=== PATIENT | male | born 1965 | race Hispanic/Latino ===

== ENCOUNTER → 2024-04-06 | Day surgery (SDC) | payer MEDICARE, OTHER ==
[~2024-04-06] MED LIST: AMITRIPTYLINE H10 MG PO; ASPIRIN81 MG; BUPIVACAINE 0.25% 30ML SDV ONE; CIPRO500 MG PO; DEXAMETHASONE SOD PHOS INJ 4 MG/ML SDV ONE; DILTIAZEM ER180 M1 PO; DOXYCYCLINE HY100 MG PO; FAMOTIDINE 20 MG/2 ML VIAL IV ONE; FENTANYL CITRATE/PF 100MCG/2 ML INJ ONE; FISH OIL; LANSOPRAZOLE30 M1; LIDOCAINE HCL 1% LOCAL INJ 20 ML VIAL ONE; LIDOCAINE HCL 2% LOCAL INJ 5 ML SDV VIAL INJ ONE; LIDOCAINE100 MG/53; LISINOPRIL10 MG PO; MAGNESIUM; MELOXICAM7.5 MG PO; MIDAZOLAM HCL 2 MG/2 ML VIAL ONE; MULTI-VITAMIN1 EACH; Morphine 10mg syringe 10 MG/ML INJ ONE; OMEPRAZOLE40 MG PO; PREVACID30 M1 PO; PROPOFOL IV EMULSION 10 MG/ML 20 ML VIAL ONE; TADALAFIL5 MG PO; TIZANIDINE HCL4 M1 PO; VITAMIN C1000 MG PO; [UNRECOGNIZED DRUG - OTHER]
[2024-04-06 06:22] LABS: BASOPHILS % 0.4 % (0.0-1.0); EOSINOPHILS # (AUTO) 0.3 (0.0-0.4); EOSINOPHILS % 7.1 % (0.0-6.0); HEMATOCRIT 40.8 % (38.2-49.6); HEMOGLOBIN 13.2 g/dL (14.0-18.0); LYMPHOCYTES # (AUTO) 1.3 (1.0-3.2); LYMPHOCYTES % 27.6 % (18.0-39.1); MEAN CORPUSCULAR HEMOGLOBIN 30.9 pg (28-32); MEAN CORPUSCULAR HGB CONC 32.4 g/dL (31-35); MEAN CORPUSCULAR VOLUME 95.6 fL (81-99); MONOCYTES # (AUTO) 0.4 (0.2-0.8); NEUTROPHILS # (AUTO) 2.6 (2.1-6.9); NEUTROPHILS % 56.7 % (38.7-80.0); PLATELET COUNT 166 x10e3/uL (140-360); RED BLOOD COUNT 4.27 x10e6/uL (4.3-5.7); RED CELL DISTRIBUTION WIDTH 13.4 % (11.7-14.4); WHITE BLOOD COUNT 4.63 x10e3/uL (4.8-10.8)
[2024-04-06 07:02] LABS: ALBUMIN 3.2 g/dL (3.5-5.0); ANION GAP 11.2 mmol/L (8-16); CREATININE, SERUM 0.48 mg/dL (0.72-1.25); TOTAL PROTEIN 6.3 g/dL (6.5-8.1)
[2024-04-06 07:04] LABS: POTASSIUM 3.2 mmol/L (3.5-5.1)
[2024-04-06] MEDS: LACTATED RINGER'S 1,000 ML ONE (07:40)
[2024-04-06 09:57] VITALS: TEMP 98.7
[2024-04-06 10:25] VITALS: BP 140/78; PULSE 60; RESP 16; O2SAT 96
== END | disposition home or self-care (01) ==
LOC: OR 05:31
PROVIDERS: ATTEND Surgery
DX: D23.5 Other benign neoplasm of skin of trunk (principal); G47.33 Obstructive sleep apnea (adult) (pediatric); I10 Essential (primary) hypertension; J45.909 Unspecified asthma, uncomplicated; G89.29 Other chronic pain; K21.9 Gastro-esophageal reflux disease without esophagitis; M06.9 Rheumatoid arthritis, unspecified; R00.1 Bradycardia, unspecified; M16.0 Bilateral primary osteoarthritis of hip; M17.0 Bilateral primary osteoarthritis of knee; F41.9 Anxiety disorder, unspecified; F32.A Depression, unspecified; Z79.1 Long term (current) use of non-steroidal anti-inflammatories (NSAID); Z79.82 Long term (current) use of aspirin; Z87.891 Personal history of nicotine dependence
CPT/HCPCS: 22904; 36415; 80053; 85025; 88305; 93005; J1100; J2001 ×2; J2250; J2270; J2704; J3010; J7121; 88304